=== PATIENT | female | born 2000 | race African-American/Black ===

== ENCOUNTER 2021-07-14 19:41 | Emergency (ER) | payer BC ==
[~2021-07-14] VITALS: Ht 165.1 cm; Wt 95.5 kg
[2021-07-14 23:01] VITALS: BP 128/66; PULSE 81; TEMP 98.2
== END 2021-07-14 23:00 | disposition home or self-care (01) ==
LOC: COL.ER 19:41
DX: U07.1 COVID-19 (principal)
CPT/HCPCS: J1885